=== PATIENT | male | born 1945 | race Caucasian/White ===

== ENCOUNTER 2016-12-15 11:28 | Emergency (ER) | payer MEDICARE | END 2016-12-15 14:30 | disposition left against medical advice (07) | LOC: UCEAST 11:28 | DX: M25.551 Pain in right hip (principal); Z53.20 Procedure and treatment not carried out because of patient's decision for unspecified reasons ==

== ENCOUNTER 2018-04-01 15:17 | Emergency (ER) | payer MEDICARE, BC ==
[2018-04-01] MEDS ORDERED: Tetracaine 0.5% OPTH.SOL 4 ML* 1 DROP BTL ONE (15:32)
[2018-04-01] MEDS ORDERED: BSS OPTH.SOL* BTL ONE (15:32)
[2018-04-01] MEDS ORDERED: Fluorescein Sod TOPICAL 0.6* 0.6 MG TEST OPHTHALMIC ONE (15:32)
[2018-04-01 15:38] VITALS: BP 131/84
--- NOTE | 2018-04-01 15:43 | ED ---
Throat Pain/Nasal Congestion - HPI Summary HPI Summary: [id number] man states that he was pushed mowing his lawn proximally one hour ago when he felt sudden foreign body sensation in his right eye. He's had some tearing and some discomfort there but no pain. There is no visual changes. Not wearing any eye protection. He feels as though there may be grass in his eye. He denies any other injury and states that this happened to him one time in the past. - History of Current Complaint Chief Complaint: UCEye Time Seen by Provider: 04/01/18 15:29 - Allergies/Home Medications Allergies/Adverse Reactions: Allergies Allergy/AdvReac Type Severity Reaction Status Date / Time No Known Allergies Allergy Verified 03/11/14 14:08 PMH/Surg Hx/FS Hx/Imm Hx Previously Healthy: Yes - hypercholesterolemia Endocrine/Hematology History: Denies: Hx Diabetes, Hx Thyroid Disease Cardiovascular History: Denies: Hx Angina, Hx Hypertension Respiratory History: Denies: Hx Asthma, Hx Chronic Obstructive Pulmonary Disease (COPD) GI History: Reports: Hx Gastroesophageal Reflux Disease Denies: Hx Ulcer History: 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 2002 HERNIA [facility] [place]. 2010 LITHOTRIPSY [facility] [place] Hx Anesthesia Reactions: No Infectious Disease History: No Infectious Disease History: Denies: Hx Clostridium Difficile, Hx Hepatitis, Hx Human Immunodeficiency Virus (HIV), Hx of Known/Suspected MRSA, Hx Shingles, Hx Tuberculosis, Traveled Outside the in Last 30 Days - Social History Alcohol Use: Daily Alcohol Amount: wine/dinner Substance Use Type: Reports: None Smoking Status (MU): Never Smoked Tobacco Review of Systems Positive: Drainage, Erythema, Other - foreign body sensation. Negative: Photophobia, Blurred Vision ENT: Negative Cardiovascular: Negative Respiratory: Negative All Other Systems Reviewed And Are Negative: Yes Physical Exam Triage Information Reviewed: Yes Vital Signs On Initial Exam: Initial Vitals Temp Pulse Resp BP Pulse Ox 98.1 F 82 16 131/84 98 04/01/18 15:29 04/01/18 15:29 04/01/18 15:29 04/01/18 15:29 04/01/18 15:29 Vital Signs Reviewed: Yes Appearance: Positive: Well-Appearing, No Pain Distress Skin: Positive: Warm, Dry Head/Face: Positive: Normal Head/Face Inspection Eyes: Positive: Other: - Right eye with mild tearing and injection. The lids were everted and a small piece of grass was removed from the lower lid. The cornea was stained with fluorescein and no uptake under Wood's lamp was found. Pain was totally relieved with a drop of tetracaine. ENT: Positive: Normal ENT inspection Respiratory/Lung Sounds: Positive: Clear to Auscultation, Breath Sounds Present Cardiovascular: Positive: RRR Neurological: Positive: CN Intact II-III Diagnostics - Vital Signs Vital Signs Temp Pulse Resp BP Pulse Ox 04/01/18 15:29 98.1 F 82 16 131/84 98 - Laboratory Lab Statement: Any lab studies that have been ordered have been reviewed, and results considered in the medical decision making process. Re-Evaluation - Re-Evaluation First Eval Change: Improved - Symptoms resolved with treatment EENT Course/Dx - Course Course Of Treatment: I removed piece S from the lids. No corneal injury was found. Pain was relieved with tetracaine. 3 days of Polytrim drops. - Differential Diagnoses Differential Diagnoses: Other - Foreign body, corneal abrasion, corneal laceration, traumatic iritis - Diagnoses Provider Diagnoses: Foreign body of eyelid, right Discharge - Sign-Out/Discharge Documenting (check all that apply): Discharge/Admit/Transfer - Discharge Plan Condition: Good Disposition: HOME Prescriptions: Polymyx/Trimethoprim OPTH* [Polytrim OPHTH*] 1 drop RIGHT EYE QID 3 Days #1 btl Patient Education Materials: Eye Foreign Body (ED) Referrals: Tucker Burns MD [Primary Care Provider] - Additional Instructions: Return with eye pain, redness, worse or other concerns. - Billing Disposition and Condition Condition: GOOD Disposition: HOME
== END 2018-04-01 15:46 | disposition home or self-care (01) ==
LOC: UCEAST 15:17
DX: T15.11XA Foreign body in conjunctival sac, right eye, initial encounter (principal); X58.XXXA Exposure to other specified factors, initial encounter; Y93.H9 Activity, other involving exterior property and land maintenance, building and construction; Y92.096 Garden or yard of other non-institutional residence as the place of occurrence of the external cause; E78.00 Pure hypercholesterolemia, unspecified; K21.9 Gastro-esophageal reflux disease without esophagitis; Z87.442 Personal history of urinary calculi; Z85.47 Personal history of malignant neoplasm of testis; Z85.820 Personal history of malignant melanoma of skin
CPT/HCPCS: 65205; 99212; A9270-GY; G0463

== ENCOUNTER 2018-12-25 10:08 | Emergency (ER) | payer MEDICARE, BC ==
[2018-12-25 10:30] VITALS: BP 139/72
--- NOTE | 2018-12-25 10:37 | UC ---
Shoulder Pain HPI - HPI Summary HPI Summary: 73 yo male presents with RIGHT shoulder pain. He tells me that he goes to the gym often and over the last 3 weeks has noticed an aching and burning pain in his right shoulder that has worsened over the last week. He has been taking 600mg ibuprofen and icing his shoulder with little relief. Pain is worse with movement and with lifting. Better with rest. He denies specific injury. No radiation of pain, numbness, or tingling. - History of Current Complaint Chief Complaint: UCUpperExtremity Stated Complaint: R SHOULDER COMPLAINT Time Seen by Provider: 12/25/18 10:37 Hx Obtained From: Patient Onset/Duration: Gradual Onset Severity Initially: Moderate Severity Currently: Moderate Pain Intensity: 7 Pain Scale Used: 0-10 Numeric - Allergies/Home Medications Allergies/Adverse Reactions: Allergies Allergy/AdvReac Type Severity Reaction Status Date / Time No Known Allergies Allergy Verified 03/11/14 14:08 PMH/Surg Hx/FS Hx/Imm Hx Endocrine History: Diabetes, Dyslipidemia GI/ History: Gastroesophageal Reflux Psychological History: Anxiety, Depression - Surgical History Surgical History: Yes Surgery Procedure, Year, and Place: 1970 TESTICULAR EXP CA. LUMPECTOMY UNDER ARM BENIGN [facility]. 2002 [place] [facility] [place] 2010 LITH[place]RIP[place] [facility] - Family History Known Family History: Positive: None - Social History Lives: With Family Alcohol Use: Rare Alcohol Amount: wine/dinner Substance Use Type: None Smoking Status (MU): Never Smoked Tobacco Review of Systems All Other Systems Reviewed And Are Negative: Yes Constitutional: Positive: Negative Skin: Positive: Negative Respiratory: Positive: Negative Cardiovascular: Positive: Negative Neurovascular: Positive: Negative Musculoskeletal: Positive: Other: - right shoulder pain Neurological: Positive: Negative Psychological: Positive: Negative Physical Exam - Summary Physical Exam Summary: GENERAL: NAD. WDWN. No pain distress. SKIN: No rashes, sores, lesions, or open wounds. CHEST: No accessory muscle use. Breathing comfortably and in no distress. CV: Pulses intact radial and ulnar. Cap refill <2seconds MSK: RIGHT SHOULDER: FROM. Mild TTP at biceps origin. Strength 5/5. No edema or obvious bony deformities. Negative apleys, empty can, almeida-jenni, neer, o blanca, and yergason tests. NEURO: Alert. Sensations intact hand and all fingers. PSYCH: Age appropriate behavior. Triage Information Reviewed: Yes Vital Signs: Initial Vital Signs Temp 97.5 F 12/25/18 10:25 Pulse 66 12/25/18 10:25 Resp 18 12/25/18 10:25 BP 139/72 12/25/18 10:25 Pulse Ox 96 12/25/18 10:25 Vital Signs Reviewed: Yes Shoulder Course/Dx - Course Course Of Treatment: XR: IMPRESSION: FINDINGS SUGGESTIVE OF CALCIFIC TENDINITIS. Suspect tendinitis as above. Advised to continue ice and NSAIDs and will refer to Ortho for further evaluation. - Differential Dx/Diagnosis Provider Diagnosis: Right shoulder tendinitis Discharge - Sign-Out/Discharge Documenting (check all that apply): Patient Departure All imaging exams completed and their final reports reviewed: Yes - Discharge Plan Condition: Stable Disposition: HOME Patient Education Materials: Shoulder Pain (ED) Referrals: Tucker Burns MD [Primary Care Provider] - Anabella Corrales MD [Medical Doctor] - As Soon As Possible Additional Instructions: If you develop a fever, shortness of breath, chest pain, new or worsening symptoms - please call your PCP or go to the ED. Your blood pressure was high at todays visit. Please see your primary provider within 4 weeks for recheck and re-evaluation. 1) Please call Orthopedics at the number below for further evaluation of your shoulder pain - Billing Disposition and Condition Condition: STABLE Disposition: Home
== END 2018-12-25 11:23 | disposition home or self-care (01) ==
LOC: UCEAST 10:08
DX: M75.91 Shoulder lesion, unspecified, right shoulder (principal); E11.9 Type 2 diabetes mellitus without complications
CPT/HCPCS: 99211; G0463

== ENCOUNTER 2019-11-06 17:00 | Emergency (ER) | payer MEDICARE, BC ==
[2019-11-06 17:22] VITALS: BP 126/82
--- NOTE | 2019-11-06 18:13 | UC ---
Back Pain HPI - HPI Summary HPI Summary: 73-year-old male who has right mid back pain over the past 3 weeks with no known injury and no other symptoms. He is unable to replicate the pain. He denies any difficulty urinating and no difficulty breathing and he has no pain on deep inspiration. He has not had any cold symptoms or cough. He is a nonsmoker - History of Current Complaint Chief Complaint: UCBackPain Stated Complaint: BACK PAIN Time Seen by Provider: 11/06/19 17:58 Hx Obtained From: Patient Onset/Duration: Gradual Onset Timing: Intermittent Severity Initially: Mild Severity Currently: Mild Pain Intensity: 6 Character: Dull, Aching Aggravating Factor(s): Nothing Alleviating Factor(s): OTC Meds Associated Signs And Symptoms: Negative: Fever, Weakness, Numbness, Tingling, Abdominal Pain, Flank Pain, Bladder Incontinence, Bowel Incontinence - Allergies/Home Medications Allergies/Adverse Reactions: Allergies Allergy/AdvReac Type Severity Reaction Status Date / Time No Known Allergies Allergy Verified 03/11/14 14:08 PMH/Surg Hx/FS Hx/Imm Hx Previously Healthy: Yes Endocrine History: Diabetes Cancer History: Other - Melanoma - Surgical History Surgical History: Yes Surgery Procedure, Year, and Place: 1970 TESTICULAR EXP CA. LUMPECTOMY UNDER ARM BENIGN [facility] [place]. 2002 HERNIA [facility] [place]. 2010 LITHOTRIPSY [facility] [place] - Family History Known Family History: Positive: None - Social History Occupation: Retired Alcohol Use: Daily Alcohol Amount: wine/dinner Substance Use Type: None Smoking Status (MU): Former Smoker Review of Systems All Other Systems Reviewed And Are Negative: Yes Musculoskeletal: Positive: Other: - Mid right back pain with no known injury and no symptoms of illness. Is Patient Immunocompromised?: No Physical Exam Triage Information Reviewed: Yes Appearance: Well-Appearing, No Pain Distress, Well-Nourished Vital Signs: Initial Vital Signs Temp 98.1 F 11/06/19 17:17 Pulse 81 11/06/19 17:17 Resp 16 11/06/19 17:17 BP 126/82 11/06/19 17:17 Pulse Ox 97 11/06/19 17:17 Vital Signs Reviewed: Yes Eyes: Positive: Conjunctiva Clear ENT: Positive: Hearing grossly normal, Pharynx normal, TMs normal, Uvula midline Neck: Positive: Supple, Nontender, No Lymphadenopathy Respiratory: Positive: Lungs clear, Normal breath sounds, No respiratory distress, No accessory muscle use Cardiovascular: Positive: RRR, No Murmur, Pulses Normal, Brisk Capillary Refill Abdomen Description: Positive: Nontender, Soft Bowel Sounds: Positive: Present Musculoskeletal Exam: Normal Musculoskeletal: Positive: Other: - Patient has minimal pain now because he took an ibuprofen prior to arrival however he does have mild soreness on palpation to the right mid back. No bruising, erythema, deformity or swelling is noted. No crepitus. Neurological Exam: Normal Psychological Exam: Normal Back Pain Course/Dx - Course Course Of Treatment: Chest x-ray: Negative as read by VRMYESHA. At this point in time I feel this is more a muscular back strain. The patient was called at 1930 with the chest x-ray results. He is to treat this with heat and continue his ibuprofen and definite follow-up with his primary care provider if no improvement or if worsening symptoms within one week. - Differential Dx/Diagnosis Provider Diagnosis: Muscle strain of upper back Discharge ED - Sign-Out/Discharge Documenting (check all that apply): Patient Departure All imaging exams completed and their final reports reviewed: Yes - Discharge Plan Condition: Good Disposition: HOME Patient Education Materials: Back Pain (ED) Referrals: Tucker Burns MD [Primary Care Provider] - Additional Instructions: Apply heat to the sore area as often as possible. Continue to take ibuprofen for pain. We will call you with the results of the chest x-ray tonight. Follow -up with your primary care provider in 2 or 3 days if any worsening of symptoms - Billing Disposition and Condition Condition: GOOD Disposition: Home
== END 2019-11-06 18:56 | disposition home or self-care (01) ==
LOC: UCEAST 17:00
DX: S29.012A Strain of muscle and tendon of back wall of thorax, initial encounter (principal); E11.9 Type 2 diabetes mellitus without complications; Z85.820 Personal history of malignant melanoma of skin; Z87.891 Personal history of nicotine dependence; X58.XXXA Exposure to other specified factors, initial encounter; Y92.9 Unspecified place or not applicable
CPT/HCPCS: 71046; 81003; 99211; G0463